=== PATIENT | female | born 1980 | race Two or more races ===

== ENCOUNTER 2023-08-11 12:36 | Emergency (ER) | payer MEDICARE, OTHER ==
[~2023-08-11] VITALS: Ht 167.6 cm; Wt 77.0 kg
[~2023-08-11 12:36] MED LIST: ASPI-556 PO; DIVA500T53 PO; DOCU-119 PO; EZET10TA57 PO; GEMF-77 PO; METF-445 PO; METO25 PO; PANT20TA PO; PARO-38 PO; QUET300T2 PO; QUET50TA PO; RISP4TAB3 PO; SITA100 PO; TRAZ150T79 PO
[2023-08-11 12:43] VITALS: BP 113/76; PULSE 116; RESP 16; TEMP 98.1
== END 2023-08-11 13:41 | disposition home or self-care (01) ==
LOC: EMS 12:37
DX: F15.20 Other stimulant dependence, uncomplicated (principal); E11.9 Type 2 diabetes mellitus without complications; I10 Essential (primary) hypertension; F17.210 Nicotine dependence, cigarettes, uncomplicated
CPT/HCPCS: 82962; 99283